=== PATIENT | female | born 1965 | race African-American/Black ===

== ENCOUNTER 2016-12-26 23:30 | Inpatient (IN) | payer OTHER ==
--- NOTE | ~2016-12-26 | PN ---
Unit #: [id number] #: [id number] Patient: BARBRA BISHOP [id number] [facility] [address] [place] [address] [id number] MR#: [id number] NAME: BARBRA BISHOP ROOM: P252 Age: 51 Sex: F Admission Date: 12/26/2016 : 1965 Attending Physician: Mc Burris M.D. Admitting Physician: Mc Burris M.D. Primary Care Physician: Vandana Charles PROGRESS NOTES DATE OF SERVICE: 12/30/2016 SUBJECTIVE Ms. Bishop is a 51-year-old female who was seen today and chart was reviewed, and case was discussed with the staff. She had a rough day yesterday with increasing agitation, irritability, and mood swings, and verbal outbursts. Meanwhile, she has been taking medication, but does not feel the medication has been effectively controlling her mood. MENTAL STATUS EXAMINATION Middle-aged female, who was casually dressed with fair personal hygiene, appears to be in no acute distress or discomfort. She was awake and alert with impaired attention and concentration. Her mood was anxious with a congruent affect. She denies any suicidal or homicidal ideations. Her insight and judgment remain slightly impaired. TREATMENT PLAN 1. We will continue on her current medications and treatment protocol. We will monitor her response to medications and make further adjustments as needed. 2. We will continue to follow up. Dictated by... Vandana Juarez/josephine TD: 01/01/2017 07:30 JOB #: [id number] [facility] PROGRESS NOTES X Mc Burris MD PROGRESS NOTE
--- NOTE | ~2016-12-26 | PA ---
Unit #: [id number] #: [id number] Patient: BARBRA BISHOP [id number] [facility] [address] [place] [address] [id number] I MR#: [id number] NAME: BARBRA BISHOP. ROOM: P252 Age: 51 Sex: F Admission Date: 12/26/2016 : 1965 Date of Assessment: 12/27/2016 Attending Physician: Mc Burris M.D. Admitting Physician: Mc Burris M.D. Primary Care Physician: Alexandra Payne M.D. PSYCHIATRIC ASSESSMENT DATE OF SERVICE 12/27/2016. IDENTIFYING DATA Ms. Bishop is a 51-year-old single female, who is a resident of [place], [place], and she is known to us from previous encounter and was self-referred to the hospital. CHIEF COMPLAINT "I have been having suicidal thoughts and homicidal thoughts." HISTORY OF PRESENT ILLNESS Ms. Bishop is a 51-year-old female with history of bipolar disorder, who was self-referred to the hospital stating that she has been wanting to harm people at her job, and when asked, she stated she is not beyond killing them. She stated that she has been working there over 20 years, but the last few years have gotten her to the point where she feels like she cannot take it anymore and does report increasing mood swings, anger, agitation, irritability, and impulsivity, and reports working for [employer] for the past 23 years and is really stressed by work and no time off recently and works 7 days a week and body is breaking down due to overwork and has poor co-workers and poor new management and does endorse irritability and anxiety and feelings of hopelessness and suicidal and homicidal ideations, and as such, a recommendation for inpatient level of care was made. SUBSTANCE ABUSE HISTORY The patient reports history of experimentation with cannabis, but denies any other drug abuse. PAST PSYCHIATRIC HISTORY The patient has had a history of inpatient psychiatric treatment at [facility] and has been diagnosed and treated for bipolar disorder. Currently, she is supposed to be on Celexa and Seroquel and prazosin, but has been noncompliant with the medications. PAST MEDICAL HISTORY No acute or chronic medical illnesses. ALLERGIES Acetaminophen, ibuprofen, and Lortab. PERSONAL AND SOCIAL HISTORY Unit #: [id number] #: [id number] Patient: BARBRA BISHOP A 51-year-old female, who reports that she is employed and lives by herself and has poor social support system. MENTAL STATUS EXAMINATION Middle-aged female, who was casually dressed with fair personal hygiene, appears to be in no acute distress or discomfort. She was awake and alert on interaction with intact orientation to time, place, and person. Her mood was anxious and depressed with a congruent affect. Her speech was slow and restricted in content. Her thought processes were disorganized with some looseness of associations and flight of ideas and suicidal and vague homicidal ideations. Her insight and judgment remain significantly impaired. DIAGNOSTIC IMPRESSION Psychiatric: Bipolar disorder, most recent episode depressed, recurrent, moderate, without psychotic features; bipolar disorder, most recent episode depressed, recurrent, moderate, without psychotic features; and cannabis abuse, moderate. Medical: None. Stressors: Moderate psychosocial stressors. TREATMENT PLAN 1. The patient has presented with a history of mood disorder and has been decompensating and will need inpatient hospitalization for safety and stabilization. We will start her back on her home medications and we will adjust the medications and monitor response. 2. Supportive therapy was provided to the patient. ESTIMATED LENGTH OF STAY 5 to 7 days. ABILITY TO HELP SELF Limited. WILLINGNESS TO HELP SELF The patient appears to be willing to help self. STRENGTHS 1. Communicative. 2. Cooperative. PROBLEMS 1. Chronic dysphoric symptoms. 2. Chronic chemical dependency. 3. Poor social support system. DISCHARGE CRITERIA This will be contingent upon the patient's ability to show resolution of her depression and anxiety and her ability to stay safe to herself, particularly after discharge from the hospital. Dictated by... Vandana Juarez/josephine TD: 12/27/2016 12:05 Unit #: [id number] #: [id number] Patient: BARBRA BISHOP JOB #: [id number] PSYCHIATRIC ASSESSMENT X Mc Burris MD PSYCHIATRIC ASSESSMENT
--- NOTE | ~2016-12-26 | DS ---
Unit #: [id number] #: [id number] Patient: BARBRA BISHOP [id number] [facility] [address] [place] [address] [id number] I MR#: [id number] NAME: BARBRA BISHOP. ROOM: P252 Age: 51 Sex: F Admission Date: 12/26/2016 : 1965 Discharge Date: Attending Physician: Mc Burris M.D. Primary Care Physician: Alexandra Payne M.D. DISCHARGE SUMMARY IDENTIFYING DATA Ms. Bishop is a 51-year-old single, female, who is a resident of [place], [place] and is known to us from previous encounter and was self-referred to the hospital. DISCHARGE DIAGNOSES Psychiatric: Bipolar disorder, most recent episode depressed, recurrent, moderate, without psychotic features; cannabis abuse, moderate. Medical: None. Stressors: Moderate psychosocial stressors. HISTORY OF PRESENT ILLNESS Please see initial psychiatric evaluation for details. PAST PSYCHIATRIC HISTORY Please see initial psychiatric evaluation for details. PAST MEDICAL HISTORY Please see initial psychiatric evaluation for details. HOSPITAL COURSE The patient was admitted to the adult psychiatric unit at [facility] and was oriented to the hospital environment. Routine p.r.n. medications were initiated, and she was started back on her home medications including her Celexa, and Seroquel as a mood stabilizer was initiated as the patient was complaining of persistent mood swings and anger and agitation, and medication was gradually titrated up and she was seen to be doing much better and was calm and cooperative with treatment recommendations and was taking the medications regularly and was tolerating them fairly well and was able to show a decent and therapeutic response with improvement in depression and anxiety and was willing to continue treatment on an outpatient basis, and as such, it was decided that she will be discharged home and will continue treatment on an outpatient basis. DISCHARGE MEDICATIONS Seroquel 300 mg at bedtime for bipolar, Celexa 20 mg a day for depression. DISCHARGE CONDITION Stable. PROGNOSIS Fair. Unit #: [id number] #: [id number] Patient: BARBRA BISHOP Dictated by... Vandana Juarez/johnl TD: 01/02/2017 07:28 JOB #: [id number] DISCHARGE SUMMARY X Mc Burris MD DISCHARGE SUMMARY
--- NOTE | ~2016-12-26 | PN ---
Unit #: [id number] #: [id number] Patient: BARBRA BISHOP [id number] [facility] [address] [place] [address] [id number] MR#: [id number] NAME: BARBRA BISHOP ROOM: P252 Age: 51 Sex: F Admission Date: 12/26/2016 : 1965 Attending Physician: Mc Burris M.D. Admitting Physician: Mc Burris M.D. Primary Care Physician: Vandana Charles PROGRESS NOTES DATE OF SERVICE: 12/28/2016 SUBJECTIVE Ms. Bishop is a 51-year-old female who was seen today and chart was reviewed, and case was discussed with the staff. She has been anxious, withdrawn, depressed, and rather seclusive to herself. Meanwhile, she has been cooperative with treatment recommendations and has been taking the medications and tolerating them fairly well. MENTAL STATUS EXAMINATION Middle-aged female who was casually dressed with fair personal hygiene, and appears to be in no acute distress or discomfort. She was awake and alert on interaction with intact orientation, but her mood was anxious and depressed with time which is slow and congruent. The patient denies any suicidal or homicidal ideation. Her insight and judgment remain slightly impaired. TREATMENT PLAN 1. We will continue on her current medications and treatment protocol. We will monitor the patient and make further adjustments as needed. 2. We will continue to follow up. Dictated by... Vandana Juarez/josephine TD: 12/30/2016 02:57 JOB #: [id number] [facility] PROGRESS NOTES X Mc Burris MD PROGRESS NOTE
--- NOTE | ~2016-12-26 | HP ---
Unit #: [id number] #: [id number] Patient: BARBRA BISHOP [id number] [place] [address] [id number] MR#: [id number] NAME: BARBRA BISHOP. ROOM: P252 Age: 51 Sex: F Admission Date: 12/26/2016 : 1965 Attending Physician: Mc Burris M.D. Admitting Physician: Mc Burris M.D. Primary Care Physician: Alexandra Payne M.D. HISTORY AND PHYSICAL HISTORY OF PRESENT ILLNESS The patient is a 51-year-old female admitted to [address] [place] [address] on 12/26/2016 for homicidal ideation against the people that she works with. PAST MEDICAL HISTORY 1. Anemia 2. Arthritis 3. Incontinence 4. Nicotine dependence 5. Hypertension 6. B12 deficiency PAST SURGICAL HISTORY 1. Bladder stimulator placement 2. Partial hysterectomy 3. Right knee 4. Pilonidal cyst I & D 5. Left eye surgery SOCIAL HISTORY The patient works at [employer]. She lives with her boyfriend. She smokes one pack of cigarettes daily. FAMILY MEDICAL HISTORY Noncontributory. ALLERGIES Hydrocodone and ibuprofen. CURRENT MEDICATIONS 1. Celexa 2. Seroquel 3. Flonase REVIEW OF SYSTEMS CONSTITUTIONAL: No fever or chills. HEENT: Denies any sore throat, ear pain or runny nose. CARDIOVASCULAR: Denies chest pain, irregular heart rhythm or palpitations. CHEST: Denies shortness of breath or cough. No hemoptysis. GASTROINTESTINAL: Denies nausea, vomiting, diarrhea or chronic constipation. ENDOCRINE: Denies history of increased thirst or urination. No recent Unit #: [id number] #: [id number] Patient: BARBRA BISHOP significant weight loss or gain. GENITOURINARY: Denies dysuria, frequency, or hematuria. SKIN: Denies any rashes. HEMATOLOGIC: Denies history of increased bleeding or bruising. MUSCULOSKELETAL: Denies any hot, swollen joints. No generalized muscle pain. NEUROLOGIC: Denies problems with vision or speech. No frequent, severe headaches. No numbness, tingling or weakness in any extremities. Denies loss of bladder or bowel control. PHYSICAL EXAM GENERAL: She is awake, alert and oriented in no acute distress. VITAL SIGNS: Temperature 98.2, heart rate 71, respiration 16, blood pressure 114/74. HEIGHT: 5'4". WEIGHT: 139 pounds. SKIN: Warm and dry without rash or lesion. HEENT: Normocephalic. TMs not viewed. Oral and nasal passages clear. Conjunctivae clear. PERRLA. EOMs intact. NECK: Supple without lymphadenopathy or thyromegaly. HEART: Regular rate and rhythm without murmur. LUNGS: Clear. ABDOMEN: Soft, nontender. : Not done. EXTREMITIES: No evidence of cyanosis, clubbing or edema. Moves all without focal deficit. NEUROLOGICAL: Grossly within normal limits. Cranial Nerves: II: Visual viveros are intact. III, IV AND : Extraocular movements are intact. Pupils are equal, round and reactive to light. V: Facial sensation is grossly normal. VII: Facial movements and expression are normal. VIII: Auditory acuity grossly intact. IX, X: Uvula is midline. Phonation is normal. XI: Patient shrugs shoulders and turns head normally. XII: Tongue protrudes in the midline. Sensory and Motor Function: Sensory and motor sensation is grossly normal. Motor: moves all extremities well. IMPRESSION 1. Psychiatric admission 2. Anemia 3. Arthritis 4. Incontinence 5. Nicotine dependence 6. Hypertension 7. B12 deficiency RECOMMENDATIONS Psychiatric per psychiatrist. MEDICAL: No contraindication to participate in facility activities. MEDICAL PROGNOSIS Good. MEDICAL CONDITION Stable. Unit #: [id number] #: [id number] Patient: BARBRA BISHOP Dictated by... Scar Sharma/marcelo TD: 12/28/2016 22:20 JOB #: [id number] HISTORY AND PHYSICAL X DI CHAMPAGNE APRN HISTORY AND PHYSICAL
--- NOTE | ~2016-12-26 | PN ---
Unit #: [id number] #: [id number] Patient: BARBRA BISHOP [id number] [facility] [address] [place] [address] [id number] MR#: [id number] NAME: BARBRA BISHOP ROOM: P252 Age: 51 Sex: F Admission Date: 12/26/2016 : 1965 Attending Physician: Mc Burris M.D. Admitting Physician: Mc Burris M.D. Primary Care Physician: Vandana Charles PROGRESS NOTES DATE January 01, 2017 DISCUSSION Ms. Bishop is a 51-year-old female, who was seen today and chart was reviewed and the case was discussed with the staff. She has been anxious, withdrawn, and rather seclusive to herself. Meanwhile, she has been cooperative with the treatment recommendations and she has been taking the medications and tolerating them fairly well. MENTAL STATUS EXAMINATION Middle-aged female, who was casually dressed with fair personal hygiene and appears to be in no acute distress or discomfort. She was awake and alert with intact orientation. Her mood was anxious and depressed with a congruent affect. The patient denies any suicidal or homicidal ideations. Her insight and judgment remain slightly impaired. TREATMENT PLAN 1. We will continue her on her current medications and treatment protocol, and will monitor her response to the medications, and make further adjustments as needed. 2. We will continue to followup. Dictated by... Vandana Juarez/derrick TD: 01/02/2017 12:28 JOB #: [id number] [facility] PROGRESS NOTES X Mc Burris MD PROGRESS NOTE
--- NOTE | ~2016-12-26 | PN ---
Unit #: [id number] #: [id number] Patient: BARBRA BISHOP [id number] [facility] [address] [place] [address] [id number] I MR#: [id number] NAME: BARBRA BISHOP. ROOM: P252 Age: 51 Sex: F Admission Date: 12/26/2016 : 1965 Attending Physician: Mc Burris M.D. Admitting Physician: Mc Burris M.D. Primary Care Physician: Vandana Charles PROGRESS NOTES DATE OF SERVICE 12/31/2016 DISCUSSION Ms. Bishop is a 51-year-old female who was seen today. Chart was reviewed and case was discussed with the staff. She has been anxious, withdrawn, and rather seclusive to herself. Meanwhile, she has been cooperative with the treatment recommendations and has been taking the medications and tolerating them fairly well with no reported side effects. MENTAL STATUS EXAMINATION Middle-aged female who is casually dressed with fair personal hygiene, appears to be in no acute distress or discomfort. The patient was awake and alert on interaction with intact orientation. Her mood is anxious with congruent affect. She denies any suicidal or homicidal ideations, and her insight and judgment remain slightly impaired. TREATMENT PLAN 1. We will continue her on her current medications and treatment protocol. We will monitor her response and make further adjustments as needed. 2. We will continue to follow up. Dictated by... Mc Burris M.D. IAA/bzg TD: 01/01/2017 10:59 JOB #: [id number] [facility] PROGRESS NOTES X Mc Burris MD PROGRESS NOTE
--- NOTE | ~2016-12-26 | PN ---
Unit #: [id number] #: [id number] Patient: BARBRA BISHOP [id number] [facility] [address] [place] [address] [id number] MR#: [id number] NAME: BARBRA BISHOP. ROOM: P252 Age: 51 Sex: F Admission Date: 12/26/2016 : 1965 Attending Physician: Mc Burris M.D. Admitting Physician: Mc Burris M.D. Primary Care Physician: Vandana Charles PROGRESS NOTES DATE OF SERVICE: 12/29/2016 SUBJECTIVE Ms. Bishop is a 51-year-old female with mood disorder, who was seen today and chart was reviewed, and the case was discussed with the staff. She was seen to be anxious, withdrawn, lying in a bed, and reports appearing good and complained of persistent depression, anxiety, irritability, mood swings, also poor sleep at night and then she has been taking the medications and tolerating them fairly well, she has not been able to show therapeutic response. MENTAL STATUS EXAMINATION Middle-aged female who was casually dressed with fair personal hygiene, and appears to be in no acute distress or discomfort. She was awake and alert on interaction with intact orientation. Her mood was anxious with a congruent affect. She reports having suicidal ideations and denies any homicidal ideation. Her insight and judgment remain slightly impaired. TREATMENT PLAN 1. We will continue on her current medications and treatment protocol. We will monitor her response to medications and make further adjustments as needed. 2. We will continue to follow up. Dictated by... Vandana Juarez/josephine TD: 12/30/2016 04:41 JOB #: [id number] Unit #: [id number] #: [id number] Patient: BRABRA BISHOPNINA PROGRESS NOTES X Mc Burris MD PROGRESS NOTE
[~2016-12-26 23:30] MED LIST: FERROUS SULFATE; LORTAB 7.5-5001 TAB; MULTI-VITAMIN1 TAB; PHENERGAN PO; VICODIN PO; VIT B-12 PO
[2016-12-27 12:58] LABS: BASOPHIL% 0.5 % (0-2.5); EOSINOPHIL# 0.2 X10e3 (0-0.7); EOSINOPHIL% 3.2 % (0.0-7.0); HEMOGLOBIN 12.5 gm/dL (12.0-16.0); LYMPHOCYTE# 2.6 X10e3 (1.0-3.5); MEAN CELL VOLUME 97.1 FL (83-96); MEAN CORPUSCULAR HEMOGLOBIN 32.9 PG (28-34); MEAN CORPUSCULAR HGB CONC 33.8 g/dL (30-36); MEAN PLATELET VOLUME 11.8 FL (6.5-11.5); MONOCYTE# 0.7 X10e3 (0-1.0); MONOCYTE% 10.2 % (3.0-12.0); NEUTROPHIL# 3.2 X10e3 (1.5-7.1); NEUTROPHIL% 48.1 % (40-75); RED BLOOD COUNT 3.81 X10e (3.90-5.30); RED CELL DISTRIBUTION WIDTH 13.5 % (11.0-15.5); WHITE BLOOD COUNT 6.7 X10e3 (4.0-10.5)
[2016-12-27 13:02] LABS: ALBUMIN SERUM 3.5 g/dL (3.5-5.0); ALKALINE PHOSPHATASE 70 U/L (32-92); ALT (SGPT) 10 U/L (10-40); AST (SGOT) 16 U/L (10-42); BILIRUBIN,TOTAL 0.5 mg/dL (0.2-2.0); BLOOD UREA NITROGEN 15 mg/dL (9-23); CARBON DIOXIDE 24 mmol/L (22-31); CHLORIDE 110 mmol/L (100-111); CREATININE SERUM 0.5 mg/dL (0.6-1.4); GLOM FILT RATE Estimated ABOVE60 mL/min (>60); GLUCOSE FASTING 93 mg/dL (70-110); POTASSIUM 4.2 mmol/L (3.5-5.1); SODIUM 141 mmol/L (135-145)
[2016-12-27 13:13] LABS: DIFF IND NO; PLATELET COUNT 144 X10e3 (140-420)
[2016-12-27 13:45] LABS: URINE APPEARANCE CLOUDY; URINE BILIRUBIN NEG (NEG); URINE BLOOD NEG (NEG); URINE COLOR DK YELLOW; URINE GLUCOSE NEG (NEG); URINE KETONE NEG (NEG); URINE LEUKOCYTE ESTERASE NEG (NEG); URINE NITRATE NEG (NEG); URINE PH 6.5 (5-8); URINE PROTEIN NEG (NEG); URINE SPECIFIC GRAVITY 1.031 (1.003-1.035)
[2016-12-27 14:29] LABS: AMPHETAMINE NEG (NEG); BARBITURATES NEG (NEG); BENZODIAZEPINES NEG (NEG); COCAINE NEG (NEG); MARIJUANA POS (NEG); OPIATES NEG (NEG); TRICYCLIC ANTIDEPRESSANTS NEG (NEG); U METHADONE NEG (NEG)
== END 2017-01-02 13:45 | disposition home or self-care (01) | DRG 885 ==
LOC: P2L 23:30
PROVIDERS: Psychiatry & Neurology Psychiatry
DX: F31.32 Bipolar disorder, current episode depressed, moderate (principal); I10 Essential (primary) hypertension; F12.10 Cannabis abuse, uncomplicated; M19.90 Unspecified osteoarthritis, unspecified site; F17.210 Nicotine dependence, cigarettes, uncomplicated; E53.8 Deficiency of other specified B group vitamins; Z90.711 Acquired absence of uterus with remaining cervical stump; D64.9 Anemia, unspecified; R32 Unspecified urinary incontinence
CPT/HCPCS: 80053; 80307; 81003; 84439; 85025